=== PATIENT | female | born 1955 | race Caucasian/White ===

== ENCOUNTER 2020-12-27 09:51 | Emergency (ER) | payer MEDICARE ==
[~2020-12-27] VITALS: Ht 162.6 cm; Wt 90.2 kg
[2020-12-27] MEDS ORDERED: MIRT1TAB15 PO (10:01)
[2020-12-27] MEDS ORDERED: LATU20TA PO (10:01)
[2020-12-27] MEDS ORDERED: LAMO100T80 PO (10:01)
[2020-12-27] MEDS ORDERED: BRIN1TAB PO (10:01)
[2020-12-27] MEDS ORDERED: LAMO200T3 PO (10:01)
[2020-12-27 11:43] VITALS: BP 125/75
== END 2020-12-27 11:44 | disposition home or self-care (01) ==
LOC: M ED 09:51
DX: B00.1 Herpesviral vesicular dermatitis (principal)

== ENCOUNTER 2021-03-10 11:42 | Emergency (ER) | payer MEDICARE ==
[~2021-03-10] VITALS: Ht 160 cm; Wt 77.6 kg
[~2021-03-10 11:42] MED LIST: BRIN1TAB PO; LAMO100T80 PO; LAMO200T3 PO; LATU20TA PO; MIRT1TAB15 PO
--- NOTE | 2021-03-10 12:42 | REP ---
INDICATION: CONFUSION. COMPARISON: None. TECHNIQUE: Helical scanning is acquired. 5 mm axial images were reformatted. Coronal MPR images were generated. FINDINGS: Bone window settings demonstrate an intact bony calvarium. There is no evidence of skull fracture or incidental bony calvarial lesion. The visualized paranasal sinuses appear clear. No intraorbital abnormality is seen. On soft tissue window setting images; the lateral, third, and fourth ventricles are normal in size and position. Crawford-white differentiation pattern is normal above and below the tentorium. There are is no evidence of intracranial hemorrhage. No mass, edema, infarction, or midline shift is seen. No extra-axial fluid collection is appreciated. IMPRESSION: Negative noncontrast head CT. <Electronically signed by Oren Jimenez > 03/10/21 [id number]
[2021-03-10 13:27] LABS: HEMOGLOBIN 14.2 g/dl (12.0-15.5); MEAN CORPUSCULAR HEMOGLOBIN 30.1 pg (27.0-33.0); MEAN CORPUSCULAR HGB CONC 32.3 g/dl (32.0-36.5); MEAN CORPUSCULAR VOLUME 93.4 fl (80.0-96.0); PLATELET COUNT, AUTOMATED 449 10^3/uL (150-450); RED BLOOD COUNT 4.71 10^6/uL (4.00-5.40); WHITE BLOOD COUNT 8.2 10^3/uL (4.0-10.0)
[2021-03-10 13:38] LABS: AMPHETAMINES LEVEL URINE NEGATIVE (NEGATIVE); BARBITURATES URINE NEGATIVE (NEGATIVE); BENZODIAZEPINES URINE NEGATIVE (NEGATIVE); CANNABINOIDS URINE NEGATIVE (NEGATIVE); COCAINE METABOLITE URINE NEGATIVE (NEGATIVE); METHADONE URINE NEGATIVE (NEGATIVE); OPIATES URINE NEGATIVE (NEGATIVE); PHENCYCLIDINE URINE NEGATIVE (NEGATIVE)
[2021-03-10 13:49] LABS: ACETAMINOPHEN LEVEL < 2.0 UG/ML (10.0-30.0); ALBUMIN 4.3 GM/DL (3.2-5.2); ALT/SGPT 57 U/L (12-78); BILIRUBIN,DIRECT 0.2 MG/DL (0.0-0.2); BILIRUBIN,TOTAL 0.7 MG/DL (0.2-1.0); BLOOD UREA NITROGEN 15 MG/DL (7-18); CALCIUM LEVEL 9.7 MG/DL (8.8-10.2); CARBON DIOXIDE LEVEL 31 MEQ/L (21-32); CHLORIDE LEVEL 105 MEQ/L (98-107); CREATININE FOR GFR 0.81 MG/DL (0.55-1.30); ETHYL ALCOHOL (ETHANOL) < 0.003 % (0.000-0.010); GLOMERULAR FILTRATION RATE > 60.0 (>45); GLUCOSE, FASTING 93 MG/DL (70-100); POTASSIUM SERUM 4.2 MEQ/L (3.5-5.1); SALICYLATE LEVEL < 1.7 MG/DL (5.0-30.0); SODIUM LEVEL 140 MEQ/L (136-145); TOTAL PROTEIN 7.4 GM/DL (6.4-8.2)
[2021-03-10 15:39] VITALS: BP 129/83
== END 2021-03-10 15:43 | disposition home or self-care (01) ==
LOC: M ED 11:42
DX: F43.0 Acute stress reaction (principal); F33.9 Major depressive disorder, recurrent, unspecified; Z79.899 Other long term (current) drug therapy

== ENCOUNTER 2021-04-16 17:38 | Inpatient (IN) | payer MEDICARE ==
[~2021-04-16] VITALS: Ht 160 cm; Wt 76.5 kg
[2021-04-16] MEDS ORDERED: MAALOX 30 ML SUSP *UDC PO PRN (18:00)
[2021-04-16] MEDS ORDERED: MOM 30ML SUSPENSION UDC PO PRN (18:00)
[2021-04-16] MEDS ORDERED: HOME MED LIST COMPLETE! XX SCH (19:50)
[2021-04-16 20:45] VITALS: BP 143/73
[2021-04-16] MEDS: clonazePAM 0.5 MG TAB PO SCH (20:56)
[2021-04-16] MEDS: lamoTRIgine 100MG TAB PO SCH (20:56)
[2021-04-16] MEDS: hydrOXYzine 25 MG TAB PO PRN (20:56)
[2021-04-16] MEDS: RAMELTEON 8 MG TAB (ROZEREM) PO SCH (20:56)
[2021-04-16] MEDS: ACETAMINOPHEN TAB 650MG DOSE (2X325MG) PO PRN (20:57)
[2021-04-17 06:49] VITALS: BP 136/67
[2021-04-17] MEDS: lamoTRIgine 100MG TAB PO SCH ×2 (08:52→21:13)
[2021-04-17] MEDS: VENLAFAXINE **XR** 75MG CAPSULE PO SCH (08:52)
[2021-04-17] MEDS: clonazePAM 0.5 MG TAB PO SCH ×2 (08:52→21:13)
--- NOTE | 2021-04-17 14:36 | ECGEPIP ---
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 No prior ECG available for comparison at the time of interpretation. Electronically Signed on 04-17-2021 14:36:27 EDT by Ata Hidalgo
--- NOTE | 2021-04-17 16:20 | MHHPEPDOC ---
General Date Of Admission: Apr 16, 2021 Legal Status: 9.39 Chief Complaint "I'm down" History of Present Illness HISTORY OF THE PRESENT ILLNESS: Patient is a 65 -year-old , female, with past psychiatric history of possible bipolar disorder, major depressive disorder who [facility] to being medically treated for rhabdomyolysis with IV fluids after a fall on the unit and CK elevation of 4608 on April 13. She had been under treatment with a private psychiatrist in the past 30 years until she recently recently changed her outpatient provider to [facility]. On interview she is depressed, labile, tearful and has a host of delusions that her will leave her, that they will be financially in trouble and that her daughter is on the street none of which were confirmed to be true with social work present. States she is dependent on her and that she is a burden to everyone around her, reporting significant change in hearing deprecating auditory hallucinations telling her she is worthless. She was treated with Lamictal, effexor, clonazepam and Risperdal prior to her rhabdomyolysis treatment. On his return we discussed medications including continuing her Lamictal, Effexor, clonazepam and starting Seroquel 50 mg twice a daily for depression with psychotic features. Seems to endorse suicidal ideation, denies intent or plan at this time. Psychiatric Review of Systems Depression (2 or more weeks): depressed mood, anhedonia, insomnia/hypersomnia, feelings of excess/guilt, feelings of worthlesness, decreased energy, difficulty concentrating, appetite changes, suicidal thoughts Psychosis: auditory hallucination (Deprecating voices, denies command hallucination), delusions, paranoia Past Psychiatric History Previous Psychiatric Diagnosis: Major depressive disorder, bipolar Previous Psychiatric Admissions: Hospitalized 3 times since 1985, last in July 2020 Suicide Attempts: None per chart review Psychiatric Follow-up: Recently started with [facility] outpatient clinic Psychiatric medications: Trials including Lamictal, Effexor, Latuda, Ativan Past Medical History Medical Problems Recent fall and rhabdomyolysis Head Injury: No Seizures: No Hospitalizations: No Surgeries: No Family Medical/Psychiatric HX Medical Problems No medical problems, no suicide ems or completions Psychiatric Disorders: Yes (1 daughter with bipolar disorder per chart review) Addiction: No Suicide Attemps/Completions: No Addiction History denies Social History Childhood: Born and raised in [place], fifth youngest of 7 children, parents . 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 Social Support: and family Legal: None Marital: for over 40 years Mental Status Examination General Appearance: unkempt Build: thin Demeanor: guarded Eye Contact: avoidant Activity: slowed, anxious Behavior: cooperative, withdrawn Speech: clear, spontaneous, slow Mood "Very depressed" Affect: constricted, labile, other (Tearful) Thought Process: circumstantial, depressed Thought Content (Delusions): delusions (Persecutory delusions) Thought Content (Other): guilty, ideas of reference Thought Content (Aggressive): other (Reports thoughts and only to be around but no intent or plan) Perception (Hallucinations): auditory (Deprecating voices, noncommand) Perception (Other): none reported Oriented: Oriented times three Insight: poor Judgment: Poor Psychosis: Abstract Thinking, Psychotic Perceptions Diagnoses Major depressive disorder, recurrent , moderate with psychotic features A-FIB/CHADSVASC A-FIB History Current/History of A-Fib/PAF?: No Current PO Anticoag Therapy: No Age/Risk Factor Scoring CHADSVASC: CHADSVASC Response (Comments) Value Age Risk Factor Age < 65 years old 0 Gender Risk Factor Female 1 Hx of CHF No 0 Hx of HTN No 0 Hx of Stroke/TIA/or VTE No 0 Hx of Diabetes No 0 Hx of Vascular Disease No 0 Total 1 Treatment Treatment ordered: NONE Reason Anticoagulant not given: Not indicated/[id number] Assessment Patient is a 65-year-old woman who returns after being treated for rhabdomyolysis with IV fluids on the medical floor, was just seen by hospitalist service waiting recommendations. Continue on current medication regimen, switched Seroquel for Risperdal. Started on Seroquel 50 mg twice daily for now. Patient was able to ambulate without difficulty, aims score =0 on testing, continues to have passive suicidal ideation and is tearful and labile with regards to affect, endorsing derogatory and prescriptively delusions related to severe depression. Does not have command hallucinations, or suicidal intent or plan. Requires stay to treat severe depression and suicidal ideation. Initial Treatment Plan 1. Patient was admitted on a [9.39] status. 2. Complete history was obtained. 3. With patients permission, family will be contacted and database will be expanded. 4. Patients medication regimen will be reviewed and changed accordingly. 5. Patient will be provided with protected environment. 6. Patient will be treated with individual, group, and milieu therapies. 7. Patient will receive supportive psych-education. 8. Discharge planning will commence immediately. 9. Outpatient follow-up treatment will be strongly recommended. 10. The initial treatment plan will focus initially on: * Depression. * Risk for suicide. ESTIMATED LENGTH OF STAY: 5-10 DAYS. TIME SPENT COUNSELING AND COORDINATING INITIAL CARE: 50 minutes. Tobacco Cessation Screen If Patient is a Smoker no Tobacco Cessation Tx Ordered?: Yes Ordered/Pending Vital Signs Vital Signs Date Time Temp Pulse Resp B/P (MAP) Pulse Ox O2 Delivery O2 Flow Rate FiO2 04/17/21 06:49 97.1 78 18 136/67 (90) 96 Room Air Medications Scheduled Lamotrigine (Lamotrigine) 100 Mg Tablet, 50 MG PO DAILY, (Reported) Lamotrigine (Lamotrigine) 200 Mg Tablet, 200 MG PO DAILY, (Reported) Lurasidone Hydrochloride (Latuda) 20 Mg Tablet, 10 MG PO DAILY, (Reported) Mirtazapine (Mirtazapine) 15 Mg Tab.rapdis, 10 MG PO QPM, (Reported) Vortioxetine Hydrobromide (Trintellix) 5 Mg Tablet, 7.5 MG PO DAILY, (Reported) Allergies Coded Allergies: No Known Allergies (Unverified , 12/27/20) JOSEPHINE IBARRA MD Apr 17, 2021 15:24
--- NOTE | 2021-04-17 17:17 | HPEPDOC ---
[facility] Medical History & Physical Date of Admission Apr 16, 2021 Date of Service: Apr 17, 2021 History and Physical CHIEF COMPLAINT: Suicidal ideation HISTORY OF PRESENT ILLNESS: Mrs. Marcus is a 65-year-old female who was in the inpatient mental health unit for suicidal ideation and depression. Patient initially was admitted for intentional overdose on benzodiazepine on 04/06/2021. She was monitored overnight and was sent to the inpatient mental health unit on 04/07/2021. She was in the inpatient mental health unit until 04/13/2021. She was found on the ground and was unable to get up. She had UTI and rhabdomyolysis. She was on the inpatient side and treated with IV fluids and IV antibiotics. Her rhabdomyolysis was resolved and she completed her antibiotic course. Physical therapy cleared her. She returned to inpatient mental health unit on 04/16/2021. I saw her this afternoon. She tells me that she has been feeling more depressed than anxious as of late. Otherwise denies any fever or chills, chest pain, dyspnea, abdominal pain, diarrhea, or dysuria. She had no further questions or concerns PAST MEDICAL HISTORY: 1. Depression 2. Cataracts 3. Bone spur and plantar fascitis 4. Low back pain PAST SURGICAL HISTORY: None SOCIAL HISTORY: Tobacco use: Denies ETOH: Rare alcoholic drink Illicit drug use: Denies FAMILY HISTORY: Father: at 98 years old. History of DM and macular degeneration Mother: at 93 years old. History of leukemia ALLERGIES: Please see below. REVIEW OF SYSTEMS: CONSTITUTIONAL: Denies any fever or chills. ENT: Denies sore throat. RESPIRATORY: Denies shortness of breath. Denies cough. CARDIOVASCULAR: Denies chest pain. GASTROINTESTINAL: Denies abdominal pain. Denies diarrhea. Denies constipation GENITOURINARY: Denies dysuria. CUTANEOUS: Denies rashes. MUSCULOSKELETAL: Denies muscle weakness. NEUROLOGICAL: Denies neuropathy. PSYCHOLOGICAL: Reports depression. HOME MEDICATIONS: Please see below. PHYSICAL EXAMINATION: VITAL SIGNS: Temperature 97.1, pulse 78, respiratory rate 18, blood pressure 136/67, pulse oximetry 96% on room air. GENERAL: In no apparent distress. HEENT: Head normocephalic/atraumatic, EOMI, sclera clear. NECK: Supple. RESPIRATORY: Lungs clear to auscultation bilaterally, no rales, wheeze or rhonchi. CARDIOVASCULAR: Regular rate and rhythm. ABDOMEN: Soft, nontender, no guarding or rebound tenderness. Normal bowel sounds. MUSCLE SKELETAL: Muscle strength 5/5 in all extremities. NEUROLOGICAL: CN 312 grossly intact, no focal deficits noted. PSYCHOLOGICAL: Depressed LABORATORY DATA: See below. IMAGING: None MICROBIOLOGY: Please see below. ASSESSMENT and PLAN: 1. Suicide attempt Patient being managed in the inpatient mental health unit 2. Depression Being managed in the inpatient mental health unit 3. Insomnia Agree with Sudheer Thank you for consulting us. We will sign off at this time. If there is any further questions or concerns, please do not hesitate to reconsult us. Vital Signs Vital Signs Date Time Temp Pulse Resp B/P (MAP) Pulse Ox O2 Delivery O2 Flow Rate FiO2 04/17/21 06:49 97.1 78 18 136/67 (90) 96 Room Air Home Medications Scheduled Lamotrigine (Lamotrigine) 100 Mg Tablet, 50 MG PO DAILY Lamotrigine (Lamotrigine) 200 Mg Tablet, 200 MG PO DAILY Lurasidone Hydrochloride (Latuda) 20 Mg Tablet, 10 MG PO DAILY Mirtazapine (Mirtazapine) 15 Mg Tab.rapdis, 10 MG PO QPM Vortioxetine Hydrobromide (Trintellix) 5 Mg Tablet, 7.5 MG PO DAILY Allergies Coded Allergies: No Known Allergies (Unverified , 12/27/20) A-FIB/CHADSVASC A-FIB History Current/History of A-Fib/PAF?: No Age/Risk Factor Scoring CHADSVASC: CHADSVASC Response (Comments) Value Age Risk Factor Age < 65 years old 0 Gender Risk Factor Female 1 Hx of CHF No 0 Hx of HTN No 0 Hx of Stroke/TIA/or VTE No 0 Hx of Diabetes No 0 Hx of Vascular Disease No 0 Total 1 INES ESCALANTE DO Apr 17, 2021 17:17
[2021-04-17 18:24] VITALS: BP 124/60
[2021-04-17] MEDS: QUEtiapine FUMARATE 50MG TAB PO SCH (21:12)
[2021-04-17] MEDS: RAMELTEON 8 MG TAB (ROZEREM) PO SCH (21:13)
[2021-04-18 06:50] VITALS: BP 146/76
[2021-04-18 08:26] LABS: CHOLESTEROL RISK RATIO 2.781 (<5)
[2021-04-18] MEDS: VENLAFAXINE **XR** 75MG CAPSULE PO SCH (08:34)
[2021-04-18] MEDS: lamoTRIgine 100MG TAB PO SCH ×2 (08:34→20:28)
[2021-04-18] MEDS: QUEtiapine FUMARATE 50MG TAB PO SCH ×2 (08:34→20:28)
[2021-04-18] MEDS: clonazePAM 0.5 MG TAB PO SCH ×2 (08:34→20:28)
[2021-04-18 08:53] LABS: HEMOGLOBIN A1c 5.5 %
[2021-04-18 16:05] VITALS: BP 116/78
--- NOTE | 2021-04-18 17:18 | MHIPNPDOC ---
[facility] Progress Note Progress Note DATE OF SERVICE: 04/18/21 HISTORY: Patient is a 65 -year-old , female, with past psychiatric history of possible bipolar disorder, major depressive disorder who returns to the [facility] to being medically treated for rhabdomyolysis with IV fluids after a fall on the unit and CK elevation of 4608 on April 13. She had been under treatment with a private psychiatrist in the past 30 years until she recently recently changed her outpatient provider to [facility]. Interval: Patient seen walking the hallways, in the common area. On interview she continues to be depressed with thoughts her Omar is leaving her and they are financially in ruin. She appears less labile and tearful however, denies any morning lightheadedness, is able to ambulate without difficulty, denies any acute distress or physical symptoms, denies dizziness. Has been tolerating medications without side effects, denies active suicidal ideation, kathleen. Collateral from Omar: He states he loves her, and that her concerns were not reality based. States he does not understand why she is having these delusions. States he spoke to outside provider "Dr Jennifer Espitia [phone]" and she will have some very useful information having seen patient for 30 years and we need to get released to get the records. States he thinks she has akathisia from her other medications and that this is a major treatment concern. Reports patient has a history of bipolar disorder, mostly depressed. Reports patient was on 2 benzos at one time in the past, recently at [facility]. Has concerns for improvement, as she has been in the hospital and getting treatment for some time with limited benefit. Coordinated with social work to obtain further records to aid in treatment strategy and improve patient's condition. VITAL SIGNS: See below. NEW TEST RESULTS: AIMS score = 0 on testing, Hba1c wnl, fasting glucose mildly elevated, lipid panel wnl. CURRENT MEDICATIONS: See below. MENTAL STATUS EXAMINATION: Patient is a 65-year old female, who is in no acute distress, average build, dressed in hospital clothing, appears stated age, long dark hair, good hygiene. Speech: Is decreased rate and amount, non-spontaneous Language skills are intact Thought processes including: Delusional, linear, Thought content: perseverates on non-reality based guilt, passive fleeting suicidal thoughts Abstract reasoning, and computation: intact Description of associations: intact Description of abnormal or psychotic thoughts: Persecutory delusions, persecutory voices, non-command. Judgment: Poor, improving Insight: poor Orientation: x3 Recent and remote memory: fair Attention span and concentration: fair Language: armenian Fund of knowledge: above average Mood: sad Affect: Dysthymic, constricted, less tearful DIAGNOSES: 1. MDD with psychotic features ASSESSMENT: Patient continues to be depressed, but affect is less tearful and labile, no acute distress, tolerating medications without side effects, agreeable to treatment plan and continued stay. Passive suicidal ideation, no intent or plan. MANAGEMENT PLAN: Continue with current medication regimen of seroquel 50 mg bid, continue to assess tolerability and for metabolic side effects, patient aware, and rare side effects of antipsychotic medications in the elderly blackbox warning on side effects of increased morbidity, side effects such as, including but not limited to EPS, NMS, TD which may become permanent, heart rhythm effects, sedation, g.i side effects. coordinating care with discharge planning to obtain records to help establish treatment regimen. TIME SPENT: 35 minutes. Vital Signs Vital Signs Date Time Temp Pulse Resp B/P (MAP) Pulse Ox O2 Delivery O2 Flow Rate FiO2 04/18/21 06:50 97.1 72 20 146/76 (99) 98 Room Air Laboratory Data 24H Labs Laboratory Tests 2 04/18/21 07:16: Triglycerides Level 98, Total Cholesterol 178, LDL Cholesterol 94, Non-HDL Cholesterol (LDL + VLDL) 114, Total HDL Cholesterol 64, Cholesterol/HDL Ratio 2.781 Current Medications Current Medications Medications (Trade) Dose Ordered Sig/Drake Route PRN Reason Start Time Stop Time Status Last Admin Dose Admin Acetaminophen (Tylenol Tab) 650 mg Q6HP PRN PO HEADACHE or MILD DISCOMFORT 04/16/21 18:00 04/16/21 20:57 Al Hydrox/Mg Hydrox/Simethicone (Mylanta) 30 ml Q4HP PRN PO HEARTBURN/INDIGESTION 04/16/21 18:00 Clonazepam (KlonoPIN) 0.5 mg BID PO 04/16/21 21:00 04/18/21 08:34 Home Med (Home Med List Complete!) ASDIRECTED XX 04/16/21 19:50 04/16/21 19:53 DC Hydroxyzine HCl (Atarax) 25 mg Q6HP PRN PO ANXIETY 04/16/21 18:00 04/16/21 20:56 Lamotrigine (LaMICtal) 100 mg QAM PO 04/17/21 09:00 04/18/21 08:34 Lamotrigine (LaMICtal) 200 mg QHS PO 04/16/21 21:00 04/17/21 21:13 Magnesium Hydroxide (Milk Of Magnesia) 30 ml DAILYPRN PRN PO CONSTIPATION 04/16/21 18:00 Quetiapine Fumarate (SEROquel) 50 mg BID PO 04/17/21 21:00 04/18/21 08:34 Ramelteon (Rozerem) 8 mg QHS PO 04/16/21 21:00 04/17/21 21:13 Venlafaxine HCl (Effexor Xr) 150 mg QAM PO 04/17/21 09:00 04/18/21 08:34 Allergies Coded Allergies: No Known Allergies (Unverified , 12/27/20) JOSEPHINE IBARRA MD Apr 18, 2021 08:54
[2021-04-18] MEDS: RAMELTEON 8 MG TAB (ROZEREM) PO SCH (20:28)
[2021-04-19 06:26] VITALS: BP 138/65
[2021-04-19] MEDS: lamoTRIgine 100MG TAB PO SCH ×2 (08:06→20:33)
[2021-04-19] MEDS: clonazePAM 0.5 MG TAB PO SCH ×2 (08:06→20:33)
[2021-04-19] MEDS: VENLAFAXINE **XR** 75MG CAPSULE PO SCH (08:06)
[2021-04-19] MEDS: QUEtiapine FUMARATE 50MG TAB PO SCH ×2 (08:06→20:33)
--- NOTE | 2021-04-19 16:23 | MHIPNPDOC ---
[facility] Progress Note Progress Note DATE OF SERVICE: 04/19/21 HISTORY: 65-year-old female with a history of bipolar disorder who was admitted for new onset delusions. Patient was seen today standing in her room, she was at times near tears as she described how she was worried and concerned over the idea that her family will be going to [facility] due to problems that she caused. 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 Did note that she was sleeping okay in the unit, felt that her medications might be slightly too high as she felt very tired earlier in the afternoon today. Her stated worries appear consistent with delusions described in previous providers notes. VITAL SIGNS: See below. NEW TEST RESULTS: No new test. CURRENT MEDICATIONS: See below. MENTAL STATUS EXAMINATION: Patient is a 65-year old female, who is dressed in hospital clothes, appears stated age, grooming is fair although she has a notable large scab on her left elbow. Speech: Is clear, heart regular rate and rhythm, soft volume. Language skills are intact. Thought processes including: Delusional, tangential. Thought content: Delusions focused on having hurt her family through her choices and her lack of decision to keep the family business intact. Highly focused on idea of law enforcement coming to arrest her. Abstract reasoning, and computation: Garden reasoning. Description of associations: Tangential. Description of abnormal or psychotic thoughts: Delusions as described in HPI, denied auditory or visual hallucinations, denied suicidal ideation; reported intense persecutory guilt. Judgment: Poor. Insight: Poor. Orientation: X3. Recent and remote memory: Recent memory. Intact, remote memory appears questionable in the setting of delusions, previous collateral from family has not supported her delusions. Attention span and concentration: Intact. Language: Fluent. Fund of knowledge: Appears normal for age. Mood: "Not good at all". Affect: Dysphoric, tearful; congruent and stable to stated mood and thought content. DIAGNOSES: 1. Major depressive disorder, severe, with psychotic features. ASSESSMENT: 1 imputed medically stable at this time after having been returned to the floor following a fall. She continues to endorse the same describe delusions by previous providers. Seroquel has been held and was recently restarted. We will continue to monitor for improvement, given her level of sedation reported with Seroquel will not be increasing at this time to allow her further adjustment. MANAGEMENT PLAN: Continue current medications as below TIME SPENT: 10 minutes. Vital Signs Vital Signs Date Time Temp Pulse Resp B/P (MAP) Pulse Ox O2 Delivery O2 Flow Rate FiO2 04/19/21 06:26 98.8 99 17 138/65 (89) Room Air 04/18/21 16:05 98 Current Medications Current Medications Medications (Trade) Dose Ordered Sig/Drake Route PRN Reason Start Time Stop Time Status Last Admin Dose Admin Acetaminophen (Tylenol Tab) 650 mg Q6HP PRN PO HEADACHE or MILD DISCOMFORT 04/16/21 18:00 04/16/21 20:57 Al Hydrox/Mg Hydrox/Simethicone (Mylanta) 30 ml Q4HP PRN PO HEARTBURN/INDIGESTION 04/16/21 18:00 Clonazepam (KlonoPIN) 0.5 mg BID PO 04/16/21 21:00 04/19/21 08:06 Home Med (Home Med List Complete!) ASDIRECTED XX 04/16/21 19:50 04/16/21 19:53 DC Hydroxyzine HCl (Atarax) 25 mg Q6HP PRN PO ANXIETY 04/16/21 18:00 04/16/21 20:56 Lamotrigine (LaMICtal) 100 mg QAM PO 04/17/21 09:00 04/19/21 08:06 Lamotrigine (LaMICtal) 200 mg QHS PO 04/16/21 21:00 04/18/21 20:28 Magnesium Hydroxide (Milk Of Magnesia) 30 ml DAILYPRN PRN PO CONSTIPATION 04/16/21 18:00 Quetiapine Fumarate (SEROquel) 50 mg BID PO 04/17/21 21:00 04/19/21 08:06 Ramelteon (Rozerem) 8 mg QHS PO 04/16/21 21:00 04/18/21 20:28 Venlafaxine HCl (Effexor Xr) 150 mg QAM PO 04/17/21 09:00 04/19/21 08:06 Allergies Coded Allergies: No Known Allergies (Unverified , 12/27/20) ZAKI MORENO MD Apr 19, 2021 10:10
[2021-04-19 16:34] VITALS: BP 117/68
[2021-04-19] MEDS: RAMELTEON 8 MG TAB (ROZEREM) PO SCH (20:33)
[2021-04-19] MEDS: ACETAMINOPHEN TAB 650MG DOSE (2X325MG) PO PRN (20:34)
[2021-04-20 06:54] VITALS: BP 123/59
[2021-04-20] MEDS: clonazePAM 0.5 MG TAB PO SCH ×2 (08:05→20:25)
[2021-04-20] MEDS: QUEtiapine FUMARATE 50MG TAB PO SCH ×2 (08:05→20:25)
[2021-04-20] MEDS: VENLAFAXINE **XR** 75MG CAPSULE PO SCH (08:05)
[2021-04-20] MEDS: lamoTRIgine 100MG TAB PO SCH ×2 (08:05→20:25)
--- NOTE | 2021-04-20 13:55 | MHIPNPDOC ---
[facility] Progress Note Progress Note DATE OF SERVICE: 04/20/21 HISTORY: HISTORY: 65-year-old female with a history of bipolar disorder who was admitted for new onset delusions. Patient was seen today standing in her room, she was at times near tears as she described how she was worried and concerned over the idea that her family will be going to shelter due to problems that she caused. 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 Did note that she was sleeping okay in the unit, felt that her medications might be slightly too high as she felt very tired earlier in the afternoon today. Her stated worries appear consistent with delusions described in previous providers notes. INTERVAL HISTORY: VITAL SIGNS: See below. NEW TEST RESULTS: Savannah reports that she is feeling somewhat better. She states that one of the nurses offered to make a few phone calls for her, and states that this is been helpful. Continues to express thoughts of being a burden to the unit of the whole, as well as her family. Appears to be able to accept comfort in relation to this, but does not seem to believe the truth behind other statements. CURRENT MEDICATIONS: See below. MENTAL STATUS EXAMINATION: Patient is a 65-year old female, who is dressed in hospital clothing, pacing in her room. Speech: Is clear, with regular rate, rhythm, and volume. Language skills are intact. Thought processes including: Perseverative on her delusions of hurting her family financially, as well as thoughts of being a burden to others. Thought content: Dysphoric, perseverative, focused on guilt and worthlessness. Abstract reasoning, and computation: Continues to have concrete thinking. Description of associations: Linear but tangential to conversation. Description of abnormal or psychotic thoughts: Denies SI, HI, AVH at present; continues to express delusions as have been documented in previous notes. Judgment: Poor. Insight: Poor. Orientation: X3. Recent and remote memory: Appears intact. Attention span and concentration: Intact. Language: Fluent. Mood: "So-so". Affect: Dysphoric, stable, congruent to mood and thoughts. DIAGNOSES: 1. Major depressive disorder, severe, with psychotic features. ASSESSMENT: Continues to report fatigue related to Seroquel, may wish to consider decreasing morning dose and increasing evening dose, but this to be left the discretion of primary provider. Savannah continues to struggle with her delusions, will likely need higher doses of antipsychotics. May wish to consider switching to an agent other than Seroquel. MANAGEMENT PLAN: Continue current medications as below TIME SPENT: 10 minutes. Vital Signs Vital Signs Date Time Temp Pulse Resp B/P (MAP) Pulse Ox O2 Delivery O2 Flow Rate FiO2 04/20/21 06:54 97.6 93 16 123/59 (80) Room Air 04/19/21 16:34 98 Current Medications Current Medications Medications (Trade) Dose Ordered Sig/Drake Route PRN Reason Start Time Stop Time Status Last Admin Dose Admin Acetaminophen (Tylenol Tab) 650 mg Q6HP PRN PO HEADACHE or MILD DISCOMFORT 04/16/21 18:00 04/19/21 20:34 Al Hydrox/Mg Hydrox/Simethicone (Mylanta) 30 ml Q4HP PRN PO HEARTBURN/INDIGESTION 04/16/21 18:00 Clonazepam (KlonoPIN) 0.5 mg BID PO 04/16/21 21:00 04/20/21 08:05 Home Med (Home Med List Complete!) ASDIRECTED XX 04/16/21 19:50 04/16/21 19:53 DC Hydroxyzine HCl (Atarax) 25 mg Q6HP PRN PO ANXIETY 04/16/21 18:00 04/16/21 20:56 Lamotrigine (LaMICtal) 100 mg QAM PO 04/17/21 09:00 04/20/21 08:05 Lamotrigine (LaMICtal) 200 mg QHS PO 04/16/21 21:00 04/19/21 20:33 Magnesium Hydroxide (Milk Of Magnesia) 30 ml DAILYPRN PRN PO CONSTIPATION 04/16/21 18:00 04/20/21 08:55 Quetiapine Fumarate (SEROquel) 50 mg BID PO 04/17/21 21:00 04/20/21 08:05 Ramelteon (Rozerem) 8 mg QHS PO 04/16/21 21:00 04/19/21 20:33 Venlafaxine HCl (Effexor Xr) 150 mg QAM PO 04/17/21 09:00 04/20/21 08:05 Allergies Coded Allergies: No Known Allergies (Unverified , 12/27/20) ZAKI MORENO MD Apr 20, 2021 10:10
[2021-04-20 16:36] VITALS: BP 118/67
[2021-04-20] MEDS: RAMELTEON 8 MG TAB (ROZEREM) PO SCH (20:25)
[2021-04-21 05:52] VITALS: BP 135/64
[2021-04-21] MEDS: lamoTRIgine 100MG TAB PO SCH ×2 (08:24→20:16)
[2021-04-21] MEDS: clonazePAM 0.5 MG TAB PO SCH ×2 (08:24→20:16)
[2021-04-21] MEDS: VENLAFAXINE **XR** 75MG CAPSULE PO SCH (08:24)
[2021-04-21] MEDS: QUEtiapine FUMARATE 50MG TAB PO SCH ×2 (08:24→20:16)
--- NOTE | 2021-04-21 16:38 | MHIPNPDOC ---
[facility] Progress Note Progress Note DATE OF SERVICE: 04/21/21 HISTORY: Patient is a 65 -year-old , female, with past psychiatric history of possible bipolar disorder, major depressive disorder who returns to the [facility] to being medically treated for rhabdomyolysis with IV fluids after a fall on the unit and CK elevation of 4608 on April 13. She had been under treatment with a private psychiatrist in the past 30 years until she recently recently changed her outpatient provider to [facility]. Interval: Charts reviewed, patient was seen in her room. Per nursing staff and patient individually she reported some daytime sedation with the morning dose of Seroquel otherwise well tolerated without side effects. Agreeable to switching to a higher nighttime dose to 150 mg as she reported improved sleep with the medication. Patient staff made aware to monitor for any signs or symptoms of orthostatic hypotension, including dizziness as patient has a history of falls. Patient continues to report passive suicidal thoughts which are vague, continues to have delusions of guilt stating " my children are on the street and my wants to leave me hallucinations however. He was assessed for akathisia for a lengthy period of time calmly without moving, during interview. Did not endorse excessive internal sense of discomfort when sitting still, reports feeling trapped " its a situational thing". Contracts for safety. Upon chart review, received records from [facility] July 2020from her care (previously with Dr. Espitia), chart showed that she had been on lorazepam as well which was discontinued, failed trials of Paxil, Effexor, Wellbutrin, nortriptyline, trazodone made her sleepy, failed trials of Depakote, Abilify. Was put on a regimen Latuda 10 mg, Lamictal 200 nightly, Remeron 15, Trintellix 5 and developed some hypomanic symptoms. Symptoms started in the 1980s around age 26-28 and prior diagnoses were MDD and bipolar disorder, denies suicide attempts, self-injurious behavior, aggressive behavior. Attempt to call Dr. Espitia at [phone] at approximately 4:15 PM, phone went straight to voicemail and was unable to leave message, will try to contact again on subsequent hospital days, ask social work spoke with her and reportedly she reported having lots of useful information that can aid in developing a treatment regimen. VITAL SIGNS: See below. NEW TEST RESULTS: none CURRENT MEDICATIONS: See below. MENTAL STATUS EXAMINATION: Patient is a 65-year old female, who is in no acute distress, average build, dressed in hospital clothing, appears stated age, long dark hair, good hygiene. Speech: Is slowed, non-spontaneous Language skills are intact Thought processes including: Delusional, linear, perseverates on delusions of guilt Thought content: Continues to have passive fleeting suicidal ideation Abstract reasoning, and computation: intact Description of associations: intact Description of abnormal or psychotic thoughts: Delusions of guilt Judgment: Improving Insight: poor Orientation: x3 Recent and remote memory: fair Attention span and concentration: fair Language: azeri Fund of knowledge: above average Mood: Depressed affect: Dysthymic, constricted, labile DIAGNOSES: 1. MDD with psychotic features versus bipolar 1 disorder per history ASSESSMENT: Patient continues to remain severely depressed with suicidal thoughts, requires continued medication changes to stabilize condition for safe discharge. MANAGEMENT PLAN: Patient tolerating Seroquel without side effects apart from daytime sedation, changed Seroquel to 150 mg nightly for psychotic symptoms in context of severe depression, obtained and reviewed extensive charts, coordinated with social work to obtain collateral contact and safety planning. TIME SPENT: 45 minutes, including coordination of care, extensive chart review, education about delusional thought process and safety planning. Vital Signs Vital Signs Date Time Temp Pulse Resp B/P (MAP) Pulse Ox O2 Delivery O2 Flow Rate FiO2 04/21/21 05:52 97.9 65 16 135/64 (87) 04/20/21 16:36 93 Room Air Current Medications Current Medications Medications (Trade) Dose Ordered Sig/Drake Route PRN Reason Start Time Stop Time Status Last Admin Dose Admin Acetaminophen (Tylenol Tab) 650 mg Q6HP PRN PO HEADACHE or MILD DISCOMFORT 04/16/21 18:00 04/19/21 20:34 Al Hydrox/Mg Hydrox/Simethicone (Mylanta) 30 ml Q4HP PRN PO HEARTBURN/INDIGESTION 04/16/21 18:00 Clonazepam (KlonoPIN) 0.5 mg BID PO 04/16/21 21:00 04/21/21 08:24 Home Med (Home Med List Complete!) ASDIRECTED XX 04/16/21 19:50 04/16/21 19:53 DC Hydroxyzine HCl (Atarax) 25 mg Q6HP PRN PO ANXIETY 04/16/21 18:00 04/16/21 20:56 Lamotrigine (LaMICtal) 100 mg QAM PO 04/17/21 09:00 04/21/21 08:24 Lamotrigine (LaMICtal) 200 mg QHS PO 04/16/21 21:00 04/20/21 20:25 Magnesium Hydroxide (Milk Of Magnesia) 30 ml DAILYPRN PRN PO CONSTIPATION 04/16/21 18:00 04/20/21 08:55 Miscellaneous (Unresolved Clarification Entry) SEE LABEL COMMENTS UNRESOLVED XX 04/22/21 00:01 Quetiapine Fumarate (SEROquel) 50 mg BID PO 04/17/21 21:00 04/21/21 10:26 DC 04/21/21 08:24 Quetiapine Fumarate (SEROquel) 150 mg QHS PO 04/21/21 21:00 Ramelteon (Rozerem) 8 mg QHS PO 04/16/21 21:00 04/20/21 20:25 Venlafaxine HCl (Effexor Xr) 150 mg QAM PO 04/17/21 09:00 04/21/21 08:24 Allergies Coded Allergies: No Known Allergies (Unverified , 12/27/20) JOSEPHINE IBARRA MD Apr 21, 2021 16:38
[2021-04-21 19:26] VITALS: BP 122/73
[2021-04-21] MEDS: RAMELTEON 8 MG TAB (ROZEREM) PO SCH (20:17)
[2021-04-22] MEDS: UNRESOLVED CLARIFICATION ENTRY XX SCH ×2 (00:01→20:29)
[2021-04-22 06:41] VITALS: BP 110/55
[2021-04-22] MEDS: lamoTRIgine 100MG TAB PO SCH ×2 (08:32→20:28)
[2021-04-22] MEDS: VENLAFAXINE **XR** 75MG CAPSULE PO SCH (08:32)
[2021-04-22] MEDS: clonazePAM 0.5 MG TAB PO SCH ×2 (08:32→20:27)
--- NOTE | 2021-04-22 16:02 | MHIPNPDOC ---
[facility] Progress Note Progress Note DATE OF SERVICE: 04/22/21 HISTORY: Patient is a 65 -year-old , female, with past psychiatric history of possible bipolar disorder, major depressive disorder who returns to the [facility] to being medically treated for rhabdomyolysis with IV fluids after a fall on the unit and CK elevation of 4608 on April 13. She had been under treatment with a private psychiatrist in the past 30 years until she recently recently changed her outpatient provider to [facility]. Interval: Charts reviewed, Patient continues to have delusions of guilt, with low mood, energy, does report improved sleep with seroquel and no side effects, denies morning dizziness, lightheadedness, loss of balance. Continues to have fleeting suicidal thoughts. Denies symptoms of kathleen or hallucinations or paranoia. Reports she believes she has a court date but is unclear about any offence, still believes children are on the streets, she has caused her family financial ruin and Omar wants to leave her which have been confirmed to not be reality based. Per collateral from Dr Espitia: Has seen her since 1983 until Jul 2020, states when she saw her noted patient to have primarily depression, social a nxiety primarily and compared herself to other family members including as being less accomplished, at times not trusting them. Did report one or two episodes lasting 1-3 days where she was more active with some "pep", but not out of control with 1 or 2 hours of less sleep at night. She had more preoccupations than delusions with her situation in the family, nothing bizarre, no overt manic symptoms. At one point was using a CPAP for a sleep diagnosis in 2010 due to low oxygen saturation. No suicide attempts, No previous ECT. Reports remote hx of some memory troubles, may consider some testing such as a MOCA. Omar Marcus called social work asking to speak with myself. Was wondering about treatment options, states he has talked with a distant relative who works in [place] in the psychiatric field who wondered if she would benefit from ECT. We discussed if the patient was agreeable it may be an option and could possibly coordinate a transfer for treatment. States she has gotten alot worse recently and the psychotic symptoms were not previously seen until recently, which is concerning. Per chart review, received records from [facility] July 2020from her care (previously with Dr. Espitia), chart showed that she had been on lorazepam as well which was discontinued, failed trials of Paxil, Effexor, Wellbutrin, nortriptyline, trazodone made her sleepy, failed trials of Depakote, Abilify. Was put on a regimen Latuda 10 mg, Lamictal 200 nightly, Remeron 15, Trintellix 5 and developed some possible hypomanic symptoms. Symptoms started in the 1980s around age [age] and prior diagnoses were MDD and bipolar disorder, denied suicide attempts, self-injurious behavior, aggressive behavior. PROS: see above, depressed mood, anhedonia, hopelessness, low energy, delusions of guilt, improved sleep MROS: no sob, no chest pain, no neurological or vision changes, no abdominal pain. VITAL SIGNS: See below. NEW TEST RESULTS: none CURRENT MEDICATIONS: See below. MENTAL STATUS EXAMINATION: Patient is a 65-year old female, who is in no acute distress, mild elevated BMI, dressed in hospital clothing, appears stated age, long dark hair, good hygiene, poor eye contact. Speech: Is slowed, non-spontaneous Language skills are intact Thought processes including: Delusional, linear, perseverates on delusions of guilt, leaving her, kids on the street, feels she is to blame, not reality based Thought content: Continues to have passive fleeting suicidal ideation on further questioning Abstract reasoning, and computation: intact Description of associations: intact Description of abnormal or psychotic thoughts: Delusions of guilt Judgment: Improving Insight: poor Orientation: x3 Recent and remote memory: fair Attention span and concentration: fair Language: frisian Fund of knowledge: above average Mood: Depressed affect: Dysthymic, constricted, labile with tearfulness at times when describing her feelings of guilt "I just know I did something wrong", unable to elaborate DIAGNOSES: 1. MDD with psychotic features versus bipolar 2 disorder per history, communication with Dr Espitia, chart review ASSESSMENT: No change patient continues to remain severely depressed with suicidal thoughts, delusions of guilt, requires continued medication changes to stabilize condition for safe discharge. MANAGEMENT PLAN: Patient tolerating Seroquel without reported side effects, continue Seroquel to 150 mg nightly for psychotic symptoms in context of severe depression, further obtained and reviewed extensive charts, obtained collateral from [facility] provider and , discussed in treatment team meeting for possible transfer and safety planning. Requested manual BP due to borderline low BP, reports, she usually runs low at baseline and patient is asymptomatic. May consider MOCA and workup for neurocognitive disorder. TIME SPENT: 55 minutes, including coordination of care, extensive chart review, education about delusional thought process and safety planning. Vital Signs Vital Signs Date Time Temp Pulse Resp B/P (MAP) Pulse Ox O2 Delivery O2 Flow Rate FiO2 04/22/21 06:41 98.1 72 18 110/55 (73) 96 Room Air Current Medications Current Medications Medications (Trade) Dose Ordered Sig/Drake Route PRN Reason Start Time Stop Time Status Last Admin Dose Admin Acetaminophen (Tylenol Tab) 650 mg Q6HP PRN PO HEADACHE or MILD DISCOMFORT 04/16/21 18:00 04/19/21 20:34 Al Hydrox/Mg Hydrox/Simethicone (Mylanta) 30 ml Q4HP PRN PO HEARTBURN/INDIGESTION 04/16/21 18:00 Clonazepam (KlonoPIN) 0.5 mg BID PO 04/16/21 21:00 04/22/21 08:32 Home Med (Home Med List Complete!) ASDIRECTED XX 04/16/21 19:50 04/16/21 19:53 DC Hydroxyzine HCl (Atarax) 25 mg Q6HP PRN PO ANXIETY 04/16/21 18:00 04/16/21 20:56 Lamotrigine (LaMICtal) 100 mg QAM PO 04/17/21 09:00 04/22/21 08:32 Lamotrigine (LaMICtal) 200 mg QHS PO 04/16/21 21:00 04/21/21 20:16 Magnesium Hydroxide (Milk Of Magnesia) 30 ml DAILYPRN PRN PO CONSTIPATION 04/16/21 18:00 04/20/21 08:55 Miscellaneous (Unresolved Clarification Entry) SEE LABEL COMMENTS UNRESOLVED XX 04/22/21 00:01 Quetiapine Fumarate (SEROquel) 50 mg BID PO 04/17/21 21:00 04/21/21 10:26 DC 04/21/21 08:24 Quetiapine Fumarate (SEROquel) 150 mg QHS PO 04/21/21 21:00 04/21/21 20:16 Ramelteon (Rozerem) 8 mg QHS PO 04/16/21 21:00 04/21/21 20:17 Venlafaxine HCl (Effexor Xr) 150 mg QAM PO 04/17/21 09:00 04/22/21 08:32 Allergies Coded Allergies: No Known Allergies (Unverified , 12/27/20) JOSEPHINE IBARRA MD Apr 22, 2021 16:02
[2021-04-22 18:25] VITALS: BP 127/65
[2021-04-22] MEDS: hydrOXYzine 25 MG TAB PO PRN (20:27)
[2021-04-22] MEDS: RAMELTEON 8 MG TAB (ROZEREM) PO SCH (20:27)
[2021-04-22] MEDS: QUEtiapine FUMARATE 50MG TAB PO SCH (20:28)
[2021-04-23 07:12] VITALS: BP 115/57
[2021-04-23] MEDS: VENLAFAXINE **XR** 75MG CAPSULE PO SCH (08:30)
[2021-04-23] MEDS: lamoTRIgine 100MG TAB PO SCH ×2 (08:30→20:24)
[2021-04-23] MEDS: clonazePAM 0.5 MG TAB PO SCH ×2 (08:30→20:24)
--- NOTE | 2021-04-23 10:36 | MHIPNPDOC ---
[facility] Progress Note Progress Note DATE OF SERVICE: 04/23/21 HISTORY: Patient is a 65 -year-old , female, with past psychiatric history of possible bipolar disorder, major depressive disorder who returns to the [facility] to being medically treated for rhabdomyolysis with IV fluids after a fall on the unit and CK elevation of 4608 on April 13. She had been under treatment with a private psychiatrist in the past 30 years until she recently recently changed her outpatient provider to [facility]. Per collateral from Dr Espitia: Has seen her since 1983 until Jul 2020, states when she saw her noted patient to have primarily depression, social anxiety primarily and compared herself to other family members including as being less accomplished, at times not trusting them. Did report one or two episodes lasting 1-3 days where she was more active with some "pep", but not out of control with 1 or 2 hours of less sleep at night. She had more preoccupations than delusions with her situation in the family, nothing bizarre, no overt manic symptoms. At one point was using a CPAP for a sleep diagnosis in 2010 due to low oxygen saturation. No suicide attempts, No previous ECT. Reports remote hx of some memory troubles, may consider some testing such as a MOCA. Omar Marcus called social work asking to speak with myself. Was w ondering about treatment options, states he has talked with a distant relative who works in [place] in the psychiatric field who wondered if she would benefit from ECT. We discussed if the patient was agreeable it may be an option and could possibly coordinate a transfer for treatment. States she has gotten alot worse recently and the psychotic symptoms were not previously seen until recently, which is concerning. Per chart review, received records from [facility] July 2020from her care (previously with Dr. Espitia), chart showed that she had been on lorazepam as well which was discontinued, failed trials of Paxil, Effexor, Wellbutrin, nortriptyline, trazodone made her sleepy, failed trials of Depakote, Abilify. Was put on a regimen Latuda 10 mg, Lamictal 200 nightly, Remeron 15, Trintellix 5 and developed some possible hypomanic symptoms. Symptoms started in the 1980s around age [age] and prior diagnoses were MDD and bipolar disorder, denied suicide attempts, self-injurious behavior, aggressive behavior. Interval: Charts reviewed, continues to have depression, avoids clear answers with regards to suicidal ideation, but states no acute intent or plan at this time. Discussed pursuing ECT, patient required multiple redirections as she states "I am anxious and nervous about what is going to to happen if things are delayed and I do not go to court", on further questioning reports she believes she is going to court "[place] We discussed how the focus of her treatment is finding means to reduce her depressive symptoms, on further exploration agrees to pursuing ECT if it is available. Was reassured she is safe on the unit, that her team is looking out for her best interests in support of her psychiatric condition and that we will help coordinate with social work means to obtain treatment and regular contact with family if requested. Denies side effects from medications, has stable low blood pressure, see below vital signs, asymptomatic and no acute complaints. No acute physical concerns. PROS: see above, depressed mood, anhedonia, hopelessness, low energy, delusions of guilt, improved sleep MROS: no sob, no chest pain, no neurological or vision changes, no abdominal pain. VITAL SIGNS: See below. NEW TEST RESULTS: none CURRENT MEDICATIONS: See below. MENTAL STATUS EXAMINATION: Patient is a 65-year old female, who is in no acute distress, mild elevated BMI, dressed in hospital clothing, appears stated age, long dark hair, good hygiene, poor eye contact. Speech: Is slowed, non-spontaneous Language skills are intact Thought processes including: Delusional, linear, perseverates on delusions of guilt, leaving her, kids on the street, feels she is to blame, not reality based Thought content: Continues to have passive fleeting suicidal ideation on further questioning Abstract reasoning, and computation: intact Description of associations: intact Description of abnormal or psychotic thoughts: Delusions of guilt Judgment: Improving Insight: poor Orientation: x3 Recent and remote memory: fair Attention span and concentration: fair Language: samoan Fund of knowledge: above average Mood: Still depressed affect: Dysthymic, constricted, labile, less tearfulness at times when describing her feelings of guilt "I just know I did something wrong", unable to elaborate DIAGNOSES: 1. MDD with psychotic features versus bipolar 2 disorder per history, communication with Dr Espitia, chart review ASSESSMENT: No change patient continues to remain severely depressed with suicidal thoughts, delusions of guilt, requires continued medication changes to stabilize condition for safe discharge. MANAGEMENT PLAN: Patient tolerating Seroquel without reported side effects, continue Seroquel to 150 mg nightly for psychotic symptoms in context of severe depression, further obtained and reviewed extensive charts, obtained collateral from [facility] provider and , discussed in treatment team meeting for possible transfer and safety planning. Requested manual BP due to borderline low BP, reports, she usually runs low at baseline and patient is asymptomatic. We will coordinate with treatment team for possible ECT treatment. may consider MOCA and workup for neurocognitive disorder. TIME SPENT: 45 minutes, including coordination of care, extensive chart review, education about delusional thought process and safety planning. Vital Signs Vital Signs Date Time Temp Pulse Resp B/P (MAP) Pulse Ox O2 Delivery O2 Flow Rate FiO2 04/23/21 07:12 97.7 85 14 115/57 (76) 98 Room Air Current Medications Current Medications Medications (Trade) Dose Ordered Sig/Drake Route PRN Reason Start Time Stop Time Status Last Admin Dose Admin Acetaminophen (Tylenol Tab) 650 mg Q6HP PRN PO HEADACHE or MILD DISCOMFORT 04/16/21 18:00 04/19/21 20:34 Al Hydrox/Mg Hydrox/Simethicone (Mylanta) 30 ml Q4HP PRN PO HEARTBURN/INDIGESTION 04/16/21 18:00 Clonazepam (KlonoPIN) 0.5 mg BID PO 04/16/21 21:00 04/23/21 08:30 Home Med (Home Med List Complete!) ASDIRECTED XX 04/16/21 19:50 04/16/21 19:53 DC Hydroxyzine HCl (Atarax) 25 mg Q6HP PRN PO ANXIETY 04/16/21 18:00 04/22/21 20:27 Lamotrigine (LaMICtal) 100 mg QAM PO 04/17/21 09:00 04/23/21 08:30 Lamotrigine (LaMICtal) 200 mg QHS PO 04/16/21 21:00 04/22/21 20:28 Magnesium Hydroxide (Milk Of Magnesia) 30 ml DAILYPRN PRN PO CONSTIPATION 04/16/21 18:00 04/20/21 08:55 Miscellaneous (Unresolved Clarification Entry) SEE LABEL COMMENTS UNRESOLVED XX 04/22/21 00:01 Quetiapine Fumarate (SEROquel) 50 mg BID PO 04/17/21 21:00 04/21/21 10:26 DC 04/21/21 08:24 Quetiapine Fumarate (SEROquel) 150 mg QHS PO 04/21/21 21:00 04/22/21 20:28 Ramelteon (Rozerem) 8 mg QHS PO 04/16/21 21:00 04/22/21 20:27 Venlafaxine HCl (Effexor Xr) 150 mg QAM PO 04/17/21 09:00 04/23/21 08:30 Allergies Coded Allergies: No Known Allergies (Unverified , 12/27/20) JOSEPHINE IBARRA MD Apr 23, 2021 10:36
[2021-04-23 13:54] VITALS: BP 122/78
[2021-04-23] MEDS: hydrOXYzine 25 MG TAB PO PRN (17:17)
[2021-04-23 18:08] VITALS: BP 127/82
[2021-04-23] MEDS: RAMELTEON 8 MG TAB (ROZEREM) PO SCH (20:24)
[2021-04-23] MEDS: QUEtiapine FUMARATE 50MG TAB PO SCH (20:24)
[2021-04-24] MEDS: hydrOXYzine 25 MG TAB PO PRN (00:18)
[2021-04-24 06:39] VITALS: BP 109/58
[2021-04-24] MEDS: clonazePAM 0.5 MG TAB PO SCH (08:41)
[2021-04-24] MEDS: VENLAFAXINE **XR** 75MG CAPSULE PO SCH (08:41)
[2021-04-24] MEDS: lamoTRIgine 100MG TAB PO SCH (08:41)
[2021-04-24] MEDS ORDERED: QUEtiapine FUMARATE 50MG TAB PO SCH (09:00)
--- NOTE | 2021-04-24 11:28 | MHIPNPDOC ---
[facility] Progress Note Progress Note DATE OF SERVICE: 04/24/21 HISTORY: Patient is a 65 -year-old , female, with past psychiatric history of possible bipolar disorder, major depressive disorder who returns to the [facility] to being medically treated for rhabdomyolysis with IV fluids after a fall on the unit and CK elevation of 4608 on April 13. She had been under treatment with a private psychiatrist in the past 30 years (Dr Espitia) until she recently recently changed her outpatient provider to [facility]. Per collateral from Dr Espitia: Has seen her since 1983 until Jul 2020, states when she saw her noted patient to have primarily depression, social anxiety primarily and compared herself to other family members including as being less accomplished, at times not trusting them. Did report one or two episodes lasting 1-3 days where she was more active with some "pep", but not out of control with 1 or 2 hours of less sleep at night. She had more preoccupations than delusions with her situation in the family, nothing bizarre, no overt manic symptoms. At one point was using a CPAP for a sleep diagnosis in 2010 due to low oxygen saturation. No suicide attempts, No previous ECT. Reports remote hx of some memory troubles, may consider some testing such as a MOCA. Per collateral from Omar Marcus 04/22: was wondering about treatment options, states he has talked with a distant relative who works in [place] in the psychiatric field who wondered if she would benefit from ECT. We discussed if the patient was agreeable it may be an option and could possibly coordinate a transfer for treatment. States she has gotten alot worse recently and the psychotic symptoms were not previously seen until recently, which is concerning. Per chart review, received records from [facility] July 2020 from her care (previously with Dr. Espitia), chart showed that she had been on lorazepam as well which was discontinued, failed full trials of Paxil, Effexor, Wellbutrin, nortriptyline, trazodone made her sleepy, failed trials of Depakote, Abilify. Was put on a regimen Latuda 10 mg, Lamictal 200 nightly, Remeron 15, Trintellix 5 and developed some possible hypomanic symptoms. Symptoms started in the 1980s around age 27-28 and prior diagnoses were MDD and bipolar disorder, denied suicide attempts, self-injurious behavior, aggressive behavior. Interval: Patient continues to have psychotic delusions of guilt in context of severe depressive symptoms. Reports hearing on the hospital intercom announcements that her is and that her children are on the street, continues to feel guilty for all that is happening to family despite it not being reality based per collateral from family. Concerns remains that she may harm self in context of worsening guilt. Rankin testing was done, with a score of 27 out of 30, lost points for drawing of cube, misidentified rhino, attention with tapping, otherwise short-term memory intact per screening. Also notably head CT, 03/10/2021 . Denies acute suicidal intent, continues to have fleeting suicidal thoughts at times. States mood continues to be low. PROS: see above, depressed mood, anhedonia, hopelessness, low energy, delusions of guilt, improved sleep MROS: no sob, no chest pain, no neurological or vision changes, no abdominal pain. VITAL SIGNS: See below. NEW TEST RESULTS: none CURRENT MEDICATIONS: See below. MENTAL STATUS EXAMINATION: Patient is a 65-year old female, who is in no acute distress, mild elevated BMI, dressed in hospital clothing, appears stated age, long dark hair, good hygiene, poor eye contact. Speech: Is slowed, non-spontaneous Language skills are intact Thought processes including: Delusional, linear, perseverates on delusions of guilt Thought content: Continues to have passive fleeting suicidal ideation on further questioning Abstract reasoning, and computation: intact Description of associations: intact Description of abnormal or psychotic thoughts: Delusions of guilt, auditory shannon llucinations, non-command Judgment: Fair Insight: poor Orientation: x3 Recent and remote memory: fair Attention span and concentration: fair Language: turkmen Fund of knowledge: above average Mood: Depressed affect: Moderately dysthymic, still constricted, labile with tearfulness DIAGNOSES: 1. MDD with psychotic features versus bipolar 2 disorder per history, communication with Dr Espitia, chart review ASSESSMENT: Plan for transfer to [facility] for ECT treatment, due to significant limited progress, on multiple treatments for psychotic symptoms in context of depression which is ongoing and not stable. Tolerating Seroquel without reported side effects, agrees to increase dose to 200 nightly if remains on the unit, slow changes made due to age and risk for side effects including orthostatic hypotension in the context of low blood pressure historically per Omar, and based on the vital signs reviewed on unit. MANAGEMENT PLAN: Rankin score of 27 out of 30, does not screen positive for early dementia symptoms. Continues to have depression with some psychotic features with plan for transfer to community for ECT, in agreement with plan. Ordered CBC with differential, CMP, TSH for screening. Plan to have Dr. donal David with provider at [facility], has signed release to speak with Dr. Peter. TIME SPENT: 40 minutes, including coordination of care for transfer, extensive chart review, education about delusional thought process and safety planning. Vital Signs Vital Signs Date Time Temp Pulse Resp B/P (MAP) Pulse Ox O2 Delivery O2 Flow Rate FiO2 04/24/21 06:39 98.8 65 16 109/58 (75) 95 Room Air Current Medications Current Medications Medications (Trade) Dose Ordered Sig/Drake Route PRN Reason Start Time Stop Time Status Last Admin Dose Admin Acetaminophen (Tylenol Tab) 650 mg Q6HP PRN PO HEADACHE or MILD DISCOMFORT 04/16/21 18:00 04/19/21 20:34 Al Hydrox/Mg Hydrox/Simethicone (Mylanta) 30 ml Q4HP PRN PO HEARTBURN/INDIGESTION 04/16/21 18:00 Clonazepam (KlonoPIN) 0.5 mg BID PO 04/16/21 21:00 04/24/21 08:41 Home Med (Home Med List Complete!) ASDIRECTED XX 04/16/21 19:50 04/16/21 19:53 DC Hydroxyzine HCl (Atarax) 25 mg Q6HP PRN PO ANXIETY 04/16/21 18:00 04/24/21 00:18 Lamotrigine (LaMICtal) 100 mg QAM PO 04/17/21 09:00 04/24/21 08:41 Lamotrigine (LaMICtal) 200 mg QHS PO 04/16/21 21:00 04/23/21 20:24 Magnesium Hydroxide (Milk Of Magnesia) 30 ml DAILYPRN PRN PO CONSTIPATION 04/16/21 18:00 04/20/21 08:55 Miscellaneous (Unresolved Clarification Entry) SEE LABEL COMMENTS UNRESOLVED XX 04/22/21 00:01 04/24/21 09:59 DC Quetiapine Fumarate (SEROquel) 50 mg BID PO 04/17/21 21:00 04/21/21 10:26 DC 04/21/21 08:24 Quetiapine Fumarate (SEROquel) 50 mg DAILY PO 04/24/21 09:00 04/24/21 10:49 Quetiapine Fumarate (SEROquel) 150 mg QHS PO 04/21/21 21:00 04/24/21 09:30 DC 04/23/21 20:24 Quetiapine Fumarate (SEROquel) 200 mg QHS PO 04/24/21 21:00 Ramelteon (Rozerem) 8 mg QHS PO 04/16/21 21:00 04/23/21 20:24 Venlafaxine HCl (Effexor Xr) 150 mg QAM PO 04/17/21 09:00 04/24/21 08:41 Allergies Coded Allergies: No Known Allergies (Unverified , 12/27/20) JOSEPHINE IBARRA MD Apr 24, 2021 11:28
[2021-04-24] MEDS ORDERED: LORazepam 0.5 MG TAB PO ONE (12:20)
[2021-04-24 13:23] LABS: BASO # 0.1 10^3/uL (0.0-0.2); BASO % 1.1 % (0.0-1.0); EOS # 0.1 10^3/uL (0.0-0.5); EOS % 1.1 % (0.0-3.0); HEMATOCRIT 40.2 % (36.0-47.0); HEMOGLOBIN 13.1 g/dl (12.0-15.5); LYMPH # 1.4 10^3/uL (1.5-5.0); LYMPH % 21.5 % (24.0-44.0); MEAN CORPUSCULAR HEMOGLOBIN 30.8 pg (27.0-33.0); MEAN CORPUSCULAR HGB CONC 32.6 g/dl (32.0-36.5); MEAN CORPUSCULAR VOLUME 94.6 fl (80.0-96.0); MONO # 0.6 10^3/uL (0.0-0.8); MONO % 9.2 % (2.0-8.0); NEUTROPHILS # 4.4 10^3/uL (1.5-8.5); NEUTROPHILS % 66.8 % (36.0-66.0); PLATELET COUNT, AUTOMATED 479 10^3/uL (150-450); RED BLOOD COUNT 4.25 10^6/uL (4.00-5.40); WHITE BLOOD COUNT 6.5 10^3/uL (4.0-10.0)
[2021-04-24 13:45] LABS: ALBUMIN 3.5 GM/DL (3.2-5.2); ALT/SGPT 42 U/L (12-78); BILIRUBIN,TOTAL 0.4 MG/DL (0.2-1.0); BLOOD UREA NITROGEN 14 MG/DL (7-18); CALCIUM LEVEL 9.5 MG/DL (8.8-10.2); CARBON DIOXIDE LEVEL 31 MEQ/L (21-32); CHLORIDE LEVEL 105 MEQ/L (98-107); CREATININE FOR GFR 0.62 MG/DL (0.55-1.30); GLOMERULAR FILTRATION RATE > 60.0 (>45); GLUCOSE, FASTING 97 MG/DL (70-100); POTASSIUM SERUM 4.3 MEQ/L (3.5-5.1); SODIUM LEVEL 140 MEQ/L (136-145); TOTAL PROTEIN 6.8 GM/DL (6.4-8.2)
[2021-04-24 13:58] LABS: RSV AMPLIFICATION NEGATIVE (NEGATIVE)
[2021-04-24] MEDS ORDERED: LAMO200T3 PO (14:11)
[2021-04-24] MEDS ORDERED: ACET1TAB55 PO (14:11)
[2021-04-24] MEDS ORDERED: RAME8TAB2 PO (14:11)
[2021-04-24] MEDS ORDERED: CLON0.5T2 PO (14:11)
[2021-04-24] MEDS ORDERED: SERO50TA PO (14:11)
[2021-04-24] MEDS ORDERED: VENL75CA47 PO (14:11)
[2021-04-24] MEDS ORDERED: SERO1TAB PO (14:11)
[2021-04-24] MEDS ORDERED: LAMO100T80 PO (14:11)
--- NOTE | 2021-04-24 16:07 | MHDSPDOC ---
[facility] Discharge Summary Discharge Summary DATE OF ADMISSION: Apr 16, 2021 at 19:36 DATE OF DISCHARGE: Apr 17, 2021 DISCHARGE DIAGNOSES: 1. 1. Major depressive disorder, recurrent, severe, with psychotic features versus bipolar 2 disorder per history and chart review REASON FOR ADMISSION: Patient originally arrived to the hospital on April 06, 2021 due to worsening depression and anxiety in context of an overdose on benzodiazepine medication. CONSULTANTS INVOLVED: See medical H&P by hospitalist TREATMENT AND PROGRESS ON THE UNIT : Patient was admitted to the [facility] unit 9.39 legal status, she was afforded the following treatment modalities: 1. Individual therapy 2. Group therapy 3. Medication management 4. Milieu Therapy 5. Safe environment HOSPITAL COURSE: Patient originally arrived to the hospital on April 06, 2021 due to worsening depression and anxiety in context of an overdose on benzodiazepine medication, she was monitored overnight and medically cleared and transferred to the [facility] on 04/07/2021. Was on the [facility] and treated with Risperdal which was titrated to 2 mg nightly, Effexor, Rozerem for sleep, clonazepam 0.5 mg twice daily, lamictal until 04/13 and was found on the floor in the bathroom and unable to get up, was sent to medicine and given IV fluid and antibiotics for rhabdomyolysis and UTI, which resolved completely. Return to inpatient mental health on 04/16/2021. Was feeling more depressed and anxious. Was continued on medications, Risperdal was switched for Seroquel, which was titrated up to 150 mg nightly with limited change in derogatory and guilty delusions related to her wanting to leave her, family being financial ruined kids on the street, her having a court date set despite no evidence in the being confirmed by any collateral. Effexor dose was held at 150 as she reported some history of hypomanic symptoms and per extensive chart review had a history of bipolar with limited coverage by antipsychotics or mood stabilizers apart from the Lamictal, per collateral from Omar Nixon, has been recent and new where she is having psychotic symptoms, unlike her usual self. Per Dr. Espitia, appears to be more of a depression and anxiety history, with some mild and short-lived possible hypomanic episodes. She has failed multiple full trials of antidepressants, mood stabilizers and antipsychotics. Per chart review, received records from [facility] 2020from her care (previously with Dr. Espitia), chart showed that she had been on lorazepam as well which was discontinued, failed trials of Paxil, Effexor, Wellbutrin, nortriptyline, trazodone made her sleepy, failed trials of Depakote, Abilify. Was put on a regimen Latuda 10 mg, Lamictal 200 nightly, Remeron 15, Trintellix 5 and developed some possible hypomanic symptoms. Symptoms started in the 1980s around age 26-28 and prior diagnoses were MDD and bipolar disorder, denied suicide attempts, self-injurious behavior, aggressive behavior. Per continue collateral with Omar mood symptoms have been going on for extended period of time and is willing to support any treatment that to be helpful. We discussed the possibility ECT, which she reported was something he had been looking into for a while. Discussed with the patient ECT, initially was ambivalent, but on reassessment agreed to the treatment with the understanding that she could always change her mind and refuse. Was educated on the basic principles of ECT, and how the treatment works, but is aware that the specialist will be able to provide a more thorough understanding of such treatment. Completed [id number] with Dr. Peter after obtaining release from the patient, reordering basic labs including CBC, CMP, provided the [facility] team with EKG, legal paperwork which was changed to 2 PC, communicated with Omar about plan to transfer. Previously obtained a release. Polson was 27 out of 30 prior to discharge, had a head CT which was negative 03/10/2021. Recommendations include, increasing Effexor back to 225 mg, if continues not to show any hypomanic symptoms, consider titrating Seroquel to 200 mg if continues to deny any signs of orthostasis, in the evening, patient has a history of low blood pressure at baseline confirmed by Omar. 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 If that he needs any further information he may feel free to contact our hospital with a release. Rule out other causes of psychotic symptoms including medical causes. DISCHARGE ASSESSMENT: Prior to discharge on today's interview patient is alert and oriented, Polson is a 27 out of 30. Hygiene and grooming is normal. Patient remains withdrawn, reports depressed mood, has chronic vague suicidal ideation, reports hearing on the intercom of the hospital her and then believes that the police are out to get her because she is guilty. Denies any bizarre delusions, denies any hallucinations apart from her own thoughts and rare derogatory voices which are unclear to her. MENTAL STATUS EXAMINATION ON DISCHARGE: Patient is a 65-year old female, who is in no acute distress, mild elevated BMI, dressed in hospital clothing, appears stated age, long dark hair, good hygiene, poor eye contact. Speech: Is slowed, non-spontaneous Language skills are intact Thought processes including: Delusional, linear, perseverates on delusions of guilt Thought content: Continues to have passive fleeting suicidal ideation on further questioning Abstract reasoning, and computation: intact Description of associations: intact Description of abnormal or psychotic thoughts: Delusions of guilt, auditory hallucinations, non-command Judgment: Fair Insight: poor Orientation: x3 Recent and remote memory: fair Attention span and concentration: fair Language: uzbek Fund of knowledge: above average Mood: Depressed affect: Moderately dysthymic, still constricted, labile with tearfulness MEDICATIONS ON DISCHARGE: -Effexor xr 150 mg p.o. daily for depression, consider taper to 225 mg -Seroquel 50 mg every morning, 150 mg nightly for psychosis, sitter increased to 200 mg nightly as tolerated -Lorazepam 0.5 mg twice daily for anxiety -Lamictal 100 mg every morning, 200 mg nightly -Rozerem 8 mg nightly for sleep -As needed anxiety medication, hydroxyzine PLAN/FOLLOWUP ARRANGEMENTS: Transfer to [address] [place] [address] CSSRS: Wish to be : yes Nonspecific active suicidal thoughts: yes Lifetime attempts: possibly 1, O.D Interrupted attempts:0 Aborted attempts:0 Preparatory reaction behavior: 0 Taking into consideration safety state, status, modifiable and non-modifiable risk factors patient is at elevated risk on discharge according to the [facility] suicide evaluation. The amount of time spent in the coordination of care for this patient was approximately 50 minutes. ETOH/Disorder Med Rx ETOH/DRUG DISORDER RX: Offrd @ d/c & pt refused, N/A Vital Signs/I&Os Vital Signs Date Time Temp Pulse Resp B/P (MAP) Pulse Ox O2 Delivery O2 Flow Rate FiO2 04/24/21 06:39 98.8 65 16 109/58 (75) 95 Room Air Laboratory Data Labs 24H Laboratory Tests 2 04/24/21 12:44: Immature Granulocyte % (Auto) 0.3, Neutrophils (%) (Auto) 66.8H, Lymphocytes (%) (Auto) 21.5L, Monocytes (%) (Auto) 9.2H, Eosinophils (%) (Auto) 1.1, Basophils (%) (Auto) 1.1H, Neutrophils # (Auto) 4.4, Lymphocytes # (Auto) 1.4L, Monocytes # (Auto) 0.6, Eosinophils # (Auto) 0.1, Basophils # (Auto) 0.1, Nucleated Red Blood Cells % (auto) 0.0, Anion Gap 4L, Glomerular Filtration Rate > 60.0, Calcium Level 9.5, Total Bilirubin 0.4, Aspartate Amino Transf (AST/SGOT) 19, Alanine Aminotransferase (ALT/SGPT) 42, Alkaline Phosphatase 64, Total Protein 6.8, Albumin 3.5, Albumin/Globulin Ratio 1.1L, Thyroid Stimulating Hormone (TSH) 1.810 04/24/21 13:13: Coronavirus (COVID-19)(PCR) NEGATIVE, Influenza Type A (RT-PCR) NEGATIVE, Influenza Type B (RT-PCR) NEGATIVE, Respiratory Syncytial Virus (PCR) NEGATIVE CBC/BMP Laboratory Tests 04/24/21 12:44 Medications Scheduled Clonazepam (Clonazepam) 0.5 Mg Tablet, 0.5 MG PO BID for anxiety, #30 Lamotrigine (Lamotrigine) 200 Mg Tablet, 200 MG PO DAILY for mood for 30 Days, #30 Lamotrigine (Lamotrigine) 100 Mg Tablet, 100 MG PO QAM for mood, #3 Quetiapine Fumarate (Seroquel) 50 Mg Tablet, 1 TAB PO QPM for psychosis for 30 Days, #30 Quetiapine Fumarate (Seroquel) 100 Mg Tablet, 1 TAB PO QPM for psychosis for 30 Days, #30 Ramelteon (Ramelteon) 8 Mg Tablet, 8 MG PO QHS for sleep, #3 Venlafaxine HCl (Venlafaxine HCl ER) 75 Mg Cap.er.24h, 150 MG PO QAM for mood, #7 Scheduled PRN Acetaminophen (Acetaminophen) 325 Mg Tablet, 650 MG PO Q6HP PRN for HEADACHE or MILD DISCOMFORT for 30 Days, #30 Allergies Coded Allergies: No Known Allergies (Unverified , 12/27/20) JOSEPHINE IBARRA MD Apr 24, 2021 16:07
[2021-04-24 17:11] VITALS: BP 116/62
[2021-04-24] MEDS ORDERED: QUEtiapine FUMARATE 100 MG TAB PO SCH (21:00)
== END 2021-04-24 17:21 | disposition short-term general hospital (02) | DRG 885 ==
LOC: M PSY 19:36
PROVIDERS: ADMIT Psychiatry & Neurology Psychiatry; ATTEND Student in an Organized Health Care Education/Training Program
DX: F33.3 Major depressive disorder, recurrent, severe with psychotic symptoms (principal); Z79.899 Other long term (current) drug therapy; Z91.5 Personal history of self-harm; M54.5 Low back pain; M72.2 Plantar fascial fibromatosis; G47.00 Insomnia, unspecified; Z20.822 Contact with and (suspected) exposure to COVID-19